=== PATIENT | female | born 1940 | race Caucasian/White ===

== ENCOUNTER → 2016-09-30 | Outpatient (CLI) | payer MEDICARE, OTHER ==
[2015-07-14 16:44] VITALS: BP 117/66
[~2016-09-30] MED LIST: ALBUTEROL0.09 MG/A4 IH; ATENOLOL100 MG PO; BONIVA PO; CALCIUM 500500 M2 PO; CALCIUM 600 MG-1 TAB PO; CALCIUM WITH D1 CTB PO; CALCIUM1 CAP PO; CLOPIDOGREL75 MG PO; COLESTID 1GM1 G PO; DEPAKOTE ER 50500 MG PO; DEPAKOTE ER250 MG PO; FISH OIL1 POW; GOOD SENSE ASPI81 M1 PO; LISINOPRIL20 MG PO; MEDI-FIRST ASP325 MG PO; MULTIVITAMIN1 CTB PO; NITROQUICK0.4 MG SL; NORCO 325 MG-51 TAB PO; OXYCODONE PO; OYSTER CALCIUM500 M1 PO; PRAVACHOL 40MG40 MG PO; SPIRIVA18 MCG IH; ZOFRAN ODT8 M1 PO; [UNRECOGNIZED DRUG - OTHER] PO
== END ==
LOC: MAMMO 10:14
DX: Z12.31 Encounter for screening mammogram for malignant neoplasm of breast (principal); R92.2 Inconclusive mammogram
CPT/HCPCS: G0202

== ENCOUNTER → 2016-09-30 | Outpatient (CLI) | payer MEDICARE, OTHER ==
[2015-07-14 16:44] VITALS: BP 117/66
== END ==
LOC: RAD 10:17
DX: Z13.820 Encounter for screening for osteoporosis (principal); M85.88 Other specified disorders of bone density and structure, other site; M85.852 Other specified disorders of bone density and structure, left thigh; M85.851 Other specified disorders of bone density and structure, right thigh

== ENCOUNTER 2016-11-02 11:34 | Emergency (ER) | payer MEDICARE, OTHER ==
[~2016-11-02] VITALS: Ht 160 cm; Wt 75.5 kg
[~2016-11-02 11:34] MED LIST changes: -BONIVA PO; -COLESTID 1GM1 G PO; -[UNRECOGNIZED DRUG - OTHER] PO
[2016-11-02] MEDS ORDERED: ATENOLOL100 MG PO (13:53)
[2016-11-02] MEDS ORDERED: COLESTID 1GM1 G PO (13:53)
[2016-11-02] MEDS ORDERED: BONIVA PO (13:55)
[2016-11-02] MEDS ORDERED: [UNRECOGNIZED DRUG - OTHER] PO (13:56)
[2016-11-02 15:15] VITALS: BP 159/83
== END 2016-11-02 15:20 | disposition home or self-care (01) ==
LOC: ED 11:34
DX: I10 Essential (primary) hypertension (principal); R20.2 Paresthesia of skin; R07.89 Other chest pain; G43.809 Other migraine, not intractable, without status migrainosus

== ENCOUNTER → 2016-11-14 | Outpatient (CLI) | payer MEDICARE, OTHER ==
[2016-11-02 15:15] VITALS: BP 159/83
[~2016-11-14] MED LIST changes: +BONIVA PO; +COLESTID 1GM1 G PO; +[UNRECOGNIZED DRUG - OTHER] PO
== END ==
LOC: CARDREHAB 07:32
DX: I25.10 Atherosclerotic heart disease of native coronary artery without angina pectoris (principal); I10 Essential (primary) hypertension; E78.5 Hyperlipidemia, unspecified; Z95.5 Presence of coronary angioplasty implant and graft; Z87.891 Personal history of nicotine dependence
CPT/HCPCS: A9500

== ENCOUNTER → 2017-06-04 | Outpatient (CLI) | payer MEDICARE, OTHER | LOC: RAD 13:42 | DX: I65.29 Occlusion and stenosis of unspecified carotid artery (principal) ==

== ENCOUNTER → 2017-09-08 | Outpatient (CLI) | payer MEDICARE, OTHER ==
[~2017-09-08] VITALS: Ht 160 cm; Wt 73.2 kg
[~2017-09-08] MED LIST changes: +CALCIUM + VIT1 EACH; -CALCIUM 600 MG-1 TAB PO; +EXCEDRIN MIGRA1 EACH PO; -FISH OIL1 POW; +FISH OIL1000 MG PO; +OPTIMUM AC500 Millio PO
[2017-09-08 15:51] VITALS: BP 139/78
== END ==
LOC: AMSURD 15:42
DX: E86.0 Dehydration (principal)
CPT/HCPCS: J7030

== ENCOUNTER → 2017-11-17 | Outpatient (CLI) | payer MEDICARE, OTHER ==
[2017-09-08 15:51] VITALS: BP 139/78
== END ==
LOC: MAMMO 10:29
DX: Z12.31 Encounter for screening mammogram for malignant neoplasm of breast (principal)

== ENCOUNTER → 2017-12-12 | Outpatient (CLI) | payer MEDICARE, OTHER ==
[2017-09-08 15:51] VITALS: BP 139/78
== END ==
LOC: MAMMO 10-20 14:30 → RAD 12:08
DX: M16.0 Bilateral primary osteoarthritis of hip (principal); M43.16 Spondylolisthesis, lumbar region; M47.9 Spondylosis, unspecified

== ENCOUNTER → 2018-02-01 | Outpatient (CLI) | payer MEDICARE, OTHER ==
[2017-09-08 15:51] VITALS: BP 139/78
== END ==
LOC: RAD 15:34
PROVIDERS: Otolaryngology
DX: M47.892 Other spondylosis, cervical region (principal); R07.0 Pain in throat
CPT/HCPCS: Q9967

== ENCOUNTER → 2018-05-26 | Outpatient (CLI) | payer MEDICARE, OTHER ==
[2017-09-08 15:51] VITALS: BP 139/78
== END ==
LOC: RAD 07:55
DX: I65.22 Occlusion and stenosis of left carotid artery (principal)

== ENCOUNTER → 2018-07-05 | Outpatient (CLI) | payer MEDICARE, OTHER ==
[2017-09-08 15:51] VITALS: BP 139/78
== END ==
LOC: RAD 11:19
DX: E04.2 Nontoxic multinodular goiter (principal)

== ENCOUNTER → 2018-12-28 | Outpatient (CLI) | payer MEDICARE, OTHER ==
[2017-09-08 15:51] VITALS: BP 139/78
== END ==
LOC: RAD 07:58 → MAMMO 08:30 → RAD 08:30 → MAMMO 13:45
DX: M81.0 Age-related osteoporosis without current pathological fracture (principal); M85.80 Other specified disorders of bone density and structure, unspecified site

== ENCOUNTER → 2018-12-28 | Outpatient (CLI) | payer MEDICARE, OTHER ==
[2017-09-08 15:51] VITALS: BP 139/78
== END ==
LOC: MAMMO 07:59
DX: Z12.31 Encounter for screening mammogram for malignant neoplasm of breast (principal)

== ENCOUNTER 2019-01-21 04:24 | Observation (INO) | payer MEDICARE, OTHER ==
[~2019-01-21] VITALS: Ht 160 cm; Wt 69.8 kg
[~2019-01-21 04:24] MED LIST changes: -CALCIUM + VIT1 EACH; +CALCIUM + VIT1 EACH PO
[2019-01-21 04:59] LABS: EOS # 0.1 (0.04-0.40); EOS % 0.6 % (1.0-5.0); HEMATOCRIT 41.9 % (37.0-47.0); HEMOGLOBIN 14.5 g/dL (12.5-16.0); LYMPH# 1.6 (1.50-4.00); MEAN CELL VOLUME 83 fl (78-100); MEAN CORPUSCULAR HEMOGLOBIN 29 pg (27-31); MEAN CORPUSCULAR HGB CONC 35 g/dL (33-37); MEAN PLATELET VOLUME 10.1 fl (7.4-10.4); MONO # 0.9 (0.20-0.80); NEU # 5.5 (1.40-6.50); PLATELET COUNT 224 K/mm3 (130-400); RED BLOOD COUNT 5.04 M/mm3 (4.10-5.30); RED CELL DISTRIBUTION WIDTH 13.4 % (11.5-14.5); WHITE BLOOD COUNT 8.2 K/mm3 (4.8-10.8)
[2019-01-21 05:06] LABS: ALBUMIN 4.6 g/dL (3.4-4.8); POTASSIUM 4.1 mmol/L (3.5-5.1); SODIUM 134 mmol/L (136-145)
[2019-01-21 05:08] LABS: CALCIUM 10.1 mg/dL (8.3-10.5)
[2019-01-21 05:09] LABS: GLUCOSE 99 mg/dL (65-105); TOTAL PROTEIN 7.5 g/dL (6.2-8.1)
[2019-01-21 05:10] LABS: CARBON DIOXIDE 24 mmol/L (23-31)
[2019-01-21 05:11] LABS: TOTAL BILIRUBIN 0.8 mg/dL (0.2-1.2)
[2019-01-21 05:14] LABS: AST-SGOT 32 U/L (5-34)
[2019-01-21 05:15] LABS: ALT/SGPT 47 U/L (0-55)
[2019-01-21 05:22] LABS: TROPONIN-I < 0.03 ng/mL (<0.030)
[2019-01-21] MEDS ORDERED: TEMOVATE30 GM TP (05:47)
[2019-01-21] MEDS ORDERED: PROAIR HFA0.09 MG/AC IH (05:50)
[2019-01-21 06:02] LABS: URINE APPEARANCE CLEAR; URINE BILIRUBIN NEGATIVE (NEGATIVE); URINE BLOOD TRACE (NEGATIVE); URINE COLOR YELLOW; URINE GLUCOSE NEGATIVE (NEGATIVE); URINE KETONE NEGATIVE (NEGATIVE); URINE NITRATE NEGATIVE (NEGATIVE); URINE PROTEIN(semi-quant) TRACE mg/dL (NEGATIVE); URINE UROBILINOGEN NORMAL (NORMAL)
[2019-01-21 06:03] LABS: URINE LEUKOCYTE ESTERASE 1+ (NEGATIVE)
[2019-01-21 07:23] VITALS: BP 186/80
[2019-01-21 11:05] VITALS: BP 185/94
[2019-01-21 14:18] VITALS: BP 149/77
[2019-01-21] MEDS ORDERED: LISINOPRIL20 MG PO (14:41)
== END 2019-01-21 15:20 | disposition home or self-care (01) ==
LOC: ED 04:24 → MED/SURG 06:54
PROVIDERS: ADMIT Nurse Practitioner Family
DX: I16.1 Hypertensive emergency (principal); I10 Essential (primary) hypertension; Z87.891 Personal history of nicotine dependence; I25.10 Atherosclerotic heart disease of native coronary artery without angina pectoris; J44.9 Chronic obstructive pulmonary disease, unspecified; Z86.73 Personal history of transient ischemic attack (TIA), and cerebral infarction without residual deficits; G93.40 Encephalopathy, unspecified; I73.00 Raynaud's syndrome without gangrene; E87.1 Hypo-osmolality and hyponatremia; Z90.49 Acquired absence of other specified parts of digestive tract; Z95.5 Presence of coronary angioplasty implant and graft; Z79.899 Other long term (current) drug therapy; Z79.82 Long term (current) use of aspirin; Z88.1 Allergy status to other antibiotic agents; Z88.6 Allergy status to analgesic agent
CPT/HCPCS: G0378; J1650

== ENCOUNTER 2019-04-01 14:31 | Emergency (ER) | payer MEDICARE, OTHER ==
[~2019-04-01 14:31] MED LIST changes: +PROAIR HFA0.09 MG/AC IH; +TEMOVATE30 GM TP
[2019-04-01 16:39] LABS: EOS # 0.2 (0.04-0.40); EOS % 2.2 % (1.0-5.0); HEMATOCRIT 41.9 % (37.0-47.0); HEMOGLOBIN 14.4 g/dL (12.5-16.0); LYMPH# 1.7 (1.50-4.00); MEAN CELL VOLUME 84 fl (78-100); MEAN CORPUSCULAR HEMOGLOBIN 29 pg (27-31); MEAN CORPUSCULAR HGB CONC 34 g/dL (33-37); MEAN PLATELET VOLUME 9.9 fl (7.4-10.4); MONO # 0.6 (0.20-0.80); NEU # 4.3 (1.40-6.50); PLATELET COUNT 240 K/mm3 (130-400); RED BLOOD COUNT 4.99 M/mm3 (4.10-5.30); RED CELL DISTRIBUTION WIDTH 13.1 % (11.5-14.5); WHITE BLOOD COUNT 6.7 K/mm3 (4.8-10.8)
[2019-04-01 16:52] LABS: ALBUMIN 4.3 g/dL (3.4-4.8); POTASSIUM 4.2 mmol/L (3.5-5.1)
[2019-04-01 16:53] LABS: CALCIUM 9.7 mg/dL (8.3-10.5)
[2019-04-01 16:54] LABS: TOTAL PROTEIN 7.7 g/dL (6.2-8.1)
[2019-04-01 16:56] LABS: TOTAL BILIRUBIN 0.5 mg/dL (0.2-1.2)
[2019-04-01 19:25] VITALS: BP 95/52
== END 2019-04-01 19:25 | disposition home or self-care (01) ==
LOC: ED 14:31
PROVIDERS: Nurse Practitioner Primary Care
DX: T78.1XXA Other adverse food reactions, not elsewhere classified, initial encounter (principal); I10 Essential (primary) hypertension; I25.10 Atherosclerotic heart disease of native coronary artery without angina pectoris; J44.9 Chronic obstructive pulmonary disease, unspecified; E78.5 Hyperlipidemia, unspecified; I73.00 Raynaud's syndrome without gangrene; Z86.73 Personal history of transient ischemic attack (TIA), and cerebral infarction without residual deficits; Z91.012 Allergy to eggs

== ENCOUNTER 2019-05-20 09:19 | Emergency (ER) | payer MEDICARE, OTHER ==
[~2019-05-20 09:19] MED LIST changes: -CALCIUM + VIT1 EACH PO; +CALCIUM 600 MG-1 TAB PO; -NITROQUICK0.4 MG SL; +NITROSTAT0.4 M1 SL
[2019-05-20 09:53] LABS: HEMATOCRIT 42.2 % (37.0-47.0); HEMOGLOBIN 14.2 g/dL (12.5-16.0); MEAN CELL VOLUME 85 fl (78-100); MEAN CORPUSCULAR HEMOGLOBIN 29 pg (27-31); MEAN CORPUSCULAR HGB CONC 34 g/dL (33-37); MEAN PLATELET VOLUME 9.8 fl (7.4-10.4); PLATELET COUNT 226 K/mm3 (130-400); RED BLOOD COUNT 4.94 M/mm3 (4.10-5.30); RED CELL DISTRIBUTION WIDTH 13.5 % (11.5-14.5); WHITE BLOOD COUNT 9.4 K/mm3 (4.8-10.8)
[2019-05-20 10:01] LABS: BAND 4 % (0-10); LYMPHOCYTE 8 % (20-51); MONOCYTE 5 % (3-10); NEUTROPHILS 81 % (42-75)
[2019-05-20 10:03] LABS: ALBUMIN 4.3 g/dL (3.4-4.8); POTASSIUM 3.7 mmol/L (3.5-5.1)
[2019-05-20 10:04] LABS: SODIUM 132 mmol/L (136-145)
[2019-05-20 10:05] LABS: CALCIUM 9.5 mg/dL (8.3-10.5)
[2019-05-20 10:06] LABS: GLUCOSE 97 mg/dL (65-105); TOTAL PROTEIN 7.1 g/dL (6.2-8.1)
[2019-05-20 10:07] LABS: CARBON DIOXIDE 21 mmol/L (23-31)
[2019-05-20 10:08] LABS: TOTAL BILIRUBIN 0.5 mg/dL (0.2-1.2)
[2019-05-20 10:11] LABS: AST-SGOT 31 U/L (5-34)
[2019-05-20 10:12] LABS: ALT/SGPT 38 U/L (0-55)
[2019-05-20 10:13] LABS: LIPASE 26 U/L (8-78)
[2019-05-20 10:19] LABS: TROPONIN-I < 0.03 ng/mL (<0.030)
[2019-05-20 10:26] LABS: D-DIMER 0.9 mg/L FEU (0.15-0.50)
[2019-05-20] MEDS ORDERED: SINGULAIR 110 MG/TAB PO (11:38)
[2019-05-20] MEDS ORDERED: FLUTICASON0.05 MG/AC NS (11:38)
[2019-05-20] MEDS ORDERED: B-121000 MCG PO (11:41)
[2019-05-20 11:54] VITALS: BP 134/68
== END 2019-05-20 12:07 | disposition home or self-care (01) ==
LOC: ED 09:19
PROVIDERS: Physician Assistant
DX: M54.9 Dorsalgia, unspecified (principal); I25.10 Atherosclerotic heart disease of native coronary artery without angina pectoris; I10 Essential (primary) hypertension; J44.9 Chronic obstructive pulmonary disease, unspecified; Z79.82 Long term (current) use of aspirin; Z79.51 Long term (current) use of inhaled steroids
CPT/HCPCS: Q9967

== ENCOUNTER 2019-06-07 06:03 | Emergency (ER) | payer MEDICARE, OTHER ==
[~2019-06-07 06:03] MED LIST changes: +B-121000 MCG PO; +FLUTICASON0.05 MG/AC NS; +SINGULAIR 110 MG/TAB PO
[2019-06-07] MEDS ORDERED: DEPAKOTE250 M1 PO (06:35)
[2019-06-07 06:49] LABS: HEMATOCRIT 39.3 % (37.0-47.0); HEMOGLOBIN 13.4 g/dL (12.5-16.0); MEAN CELL VOLUME 85 fl (78-100); MEAN CORPUSCULAR HEMOGLOBIN 29 pg (27-31); MEAN CORPUSCULAR HGB CONC 34 g/dL (33-37); MEAN PLATELET VOLUME 9.9 fl (7.4-10.4); PLATELET COUNT 188 K/mm3 (130-400); RED BLOOD COUNT 4.65 M/mm3 (4.10-5.30); WHITE BLOOD COUNT 4.1 K/mm3 (4.8-10.8)
[2019-06-07 07:09] LABS: LYMPHOCYTE 33 % (20-51); MONOCYTE 14 % (3-10); NEUTROPHILS 52 % (42-75)
[2019-06-07 07:12] LABS: ALBUMIN 3.9 g/dL (3.4-4.8); POTASSIUM 4.3 mmol/L (3.5-5.1)
[2019-06-07 07:13] LABS: CALCIUM 9.2 mg/dL (8.3-10.5)
[2019-06-07 07:15] LABS: TOTAL PROTEIN 6.5 g/dL (6.2-8.1)
[2019-06-07 07:16] LABS: TOTAL BILIRUBIN 0.8 mg/dL (0.2-1.2)
[2019-06-07 09:00] VITALS: BP 131/73
== END 2019-06-07 09:03 | disposition home or self-care (01) ==
LOC: ED 06:03
PROVIDERS: Nurse Practitioner Family
DX: G24.9 Dystonia, unspecified (principal); J44.9 Chronic obstructive pulmonary disease, unspecified; I10 Essential (primary) hypertension; I25.2 Old myocardial infarction; Z95.5 Presence of coronary angioplasty implant and graft

== ENCOUNTER 2019-07-27 18:07 | Emergency (ER) | payer MEDICARE, OTHER ==
[~2019-07-27] VITALS: Wt 71.9 kg
[~2019-07-27 18:07] MED LIST changes: +DEPAKOTE250 M1 PO; +RT SPIRIVA INH18 MCG IH; -SPIRIVA18 MCG IH; +WOMEN'S DAILY F1 TAB PO; -[UNRECOGNIZED DRUG - OTHER] PO
[2019-07-27] MEDS ORDERED: LISINOPRIL40 MG PO (18:55)
[2019-07-27] MEDS ORDERED: LORAZEPAM0.5 M1 PO (18:57)
[2019-07-27 19:02] LABS: POTASSIUM 4.3 mmol/L (3.5-5.1)
[2019-07-27 19:04] LABS: HEMATOCRIT 37.5 % (37.0-47.0); HEMOGLOBIN 12.6 g/dL (12.5-16.0); MEAN CELL VOLUME 85 fl (78-100); MEAN CORPUSCULAR HEMOGLOBIN 29 pg (27-31); MEAN CORPUSCULAR HGB CONC 34 g/dL (33-37); MEAN PLATELET VOLUME 10.3 fl (7.4-10.4); PLATELET COUNT 183 K/mm3 (130-400); RED CELL DISTRIBUTION WIDTH 13.4 % (11.5-14.5); WHITE BLOOD COUNT 5.2 K/mm3 (4.8-10.8)
[2019-07-27 19:11] LABS: LYMPHOCYTE 38 % (20-51); MONOCYTE 10 % (3-10); NEUTROPHILS 51 % (42-75)
[2019-07-27 20:30] VITALS: BP 125/60
== END 2019-07-27 20:30 | disposition home or self-care (01) ==
LOC: ED 18:07
PROVIDERS: Physician Assistant
DX: I16.0 Hypertensive urgency (principal); I25.10 Atherosclerotic heart disease of native coronary artery without angina pectoris; I10 Essential (primary) hypertension; F41.9 Anxiety disorder, unspecified; G24.9 Dystonia, unspecified; Z79.82 Long term (current) use of aspirin; Z86.73 Personal history of transient ischemic attack (TIA), and cerebral infarction without residual deficits

== ENCOUNTER → 2020-01-03 | Outpatient (CLI) | payer MEDICARE, OTHER ==
[~2020-01-03] MED LIST changes: +LISINOPRIL40 MG PO; +LORAZEPAM0.5 M1 PO
== END ==
LOC: MAMMO 12:53
DX: Z12.31 Encounter for screening mammogram for malignant neoplasm of breast (principal)

== ENCOUNTER → 2020-07-28 | Outpatient (CLI) | payer MEDICARE, OTHER ==
[2020-07-28 15:54] LABS: EOS # 0.3 (0.04-0.40); HEMATOCRIT 33.8 % (37.0-47.0); HEMOGLOBIN 10.4 g/dL (12.5-16.0); MEAN CELL VOLUME 96 fl (78-100); MEAN CORPUSCULAR HEMOGLOBIN 30 pg (27-31); MEAN CORPUSCULAR HGB CONC 31 g/dL (33-37); MONO # 0.6 (0.20-0.80); NEU # 4.6 (1.40-6.50); PLATELET COUNT 475 K/mm3 (130-400); RED BLOOD COUNT 3.53 M/mm3 (4.10-5.30); RED CELL DISTRIBUTION WIDTH 13.5 % (11.5-14.5); WHITE BLOOD COUNT 7.6 K/mm3 (4.8-10.8)
== END ==
LOC: RAD 15:13
PROVIDERS: Nurse Practitioner
DX: M25.531 Pain in right wrist (principal); R20.2 Paresthesia of skin

== ENCOUNTER 2020-09-13 07:21 | Emergency (ER) | payer MEDICARE, OTHER ==
[~2020-09-13 07:21] MED LIST changes: -PRAVACHOL 40MG40 MG PO; +PRAVASTATIN SOD40 MG PO
[2020-09-13] MEDS ORDERED: AMLODIPINE BESYL5 MG PO (08:33)
[2020-09-13] MEDS ORDERED: SERTRALINE HYDR25 MG PO (08:36)
[2020-09-13 08:54] LABS: HEMATOCRIT 39.7 % (37.0-47.0); HEMOGLOBIN 13.3 g/dL (12.5-16.0); MEAN CELL VOLUME 86 fl (78-100); MEAN CORPUSCULAR HEMOGLOBIN 29 pg (27-31); MEAN CORPUSCULAR HGB CONC 34 g/dL (33-37); MEAN PLATELET VOLUME 9.9 fl (7.4-10.4); PLATELET COUNT 234 K/mm3 (130-400); RED BLOOD COUNT 4.61 M/mm3 (4.10-5.30); RED CELL DISTRIBUTION WIDTH 13.6 % (11.5-14.5); WHITE BLOOD COUNT 13.6 K/mm3 (4.8-10.8)
[2020-09-13 09:05] LABS: ALBUMIN 4.3 g/dL (3.4-4.8)
[2020-09-13 09:06] LABS: POTASSIUM 4.5 mmol/L (3.5-5.1)
[2020-09-13 09:07] LABS: CALCIUM 9.9 mg/dL (8.3-10.5)
[2020-09-13 09:08] LABS: TOTAL PROTEIN 7.4 g/dL (6.2-8.1)
[2020-09-13 09:10] LABS: TOTAL BILIRUBIN 0.6 mg/dL (0.2-1.2)
[2020-09-13 09:15] LABS: BAND 3 % (0-10); LYMPHOCYTE 9 % (20-51); MONOCYTE 3 % (3-10); NEUTROPHILS 85 % (42-75)
[2020-09-13 09:38] LABS: D-DIMER 2.01 mg/L FEU (0.15-0.50)
[2020-09-13 09:52] LABS: URINE APPEARANCE CLEAR; URINE BILIRUBIN NEGATIVE (NEGATIVE); URINE BLOOD TRACE (NEGATIVE); URINE COLOR YELLOW; URINE GLUCOSE NEGATIVE (NEGATIVE); URINE KETONE SMALL (NEGATIVE); URINE LEUKOCYTE ESTERASE 1+ (NEGATIVE); URINE MUCUS PRESENT (NOT PRESENT); URINE NITRATE NEGATIVE (NEGATIVE); URINE PROTEIN(semi-quant) 1+ mg/dL (NEGATIVE); URINE UROBILINOGEN NORMAL (NORMAL)
[2020-09-13] MEDS ORDERED: MACROBID 100 M100 MG PO (11:03)
[2020-09-13] MEDS ORDERED: NAPROXEN250 M2 PO (11:03)
[2020-09-13 11:45] VITALS: BP 142/86
== END 2020-09-13 11:45 | disposition home or self-care (01) ==
LOC: ED 07:21
PROVIDERS: Physician Assistant
DX: M25.562 Pain in left knee (principal); N39.0 Urinary tract infection, site not specified; I10 Essential (primary) hypertension; E78.5 Hyperlipidemia, unspecified; M79.662 Pain in left lower leg; Z79.82 Long term (current) use of aspirin; Z87.891 Personal history of nicotine dependence; Z88.6 Allergy status to analgesic agent; Z88.1 Allergy status to other antibiotic agents
CPT/HCPCS: J1885

== ENCOUNTER → 2020-11-23 | Outpatient (CLI) | payer MEDICARE, OTHER ==
[~2020-11-23] MED LIST changes: +ADVIL 200MG TA200 MG PO; +ALLERGY RELIEF10 M2 PO; +AMLODIPINE BESYL5 MG PO; +AMOXICILLIN AND1 TA2 PO; +CYCLOBENZ5 MG PO; +HYDROXYZINE HCL25 M1 PO; +MACROBID 100 M100 MG PO; +NAPROXEN250 M2 PO; +SERTRALINE HYDR25 MG PO
== END ==
LOC: RAD 09:47
DX: K62.5 Hemorrhage of anus and rectum (principal); Z90.49 Acquired absence of other specified parts of digestive tract
CPT/HCPCS: Q9967

== ENCOUNTER → 2021-01-08 | Outpatient (CLI) | payer MEDICARE, OTHER | LOC: MAMMO 01-01 14:30 | DX: Z12.31 Encounter for screening mammogram for malignant neoplasm of breast (principal); Z78.0 Asymptomatic menopausal state ==

== ENCOUNTER → 2021-01-08 | Outpatient (CLI) | payer MEDICARE, OTHER | LOC: MAMMO 14:19 | DX: M81.0 Age-related osteoporosis without current pathological fracture (principal) ==

== ENCOUNTER 2021-01-20 10:44 | Emergency (ER) | payer MEDICARE, OTHER ==
[~2021-01-20 10:44] MED LIST changes: -ADVIL 200MG TA200 MG PO; -ALLERGY RELIEF10 M2 PO; -AMOXICILLIN AND1 TA2 PO; -CYCLOBENZ5 MG PO; -HYDROXYZINE HCL25 M1 PO
[2021-01-20] MEDS ORDERED: ADVIL 200MG TA200 MG PO (11:31)
[2021-01-20 12:22] VITALS: BP 138/71
== END 2021-01-20 12:22 | disposition home or self-care (01) ==
LOC: ED 10:44
DX: S61.211A Laceration without foreign body of left index finger without damage to nail, initial encounter (principal); I10 Essential (primary) hypertension; E78.5 Hyperlipidemia, unspecified; J45.909 Unspecified asthma, uncomplicated; Z23 Encounter for immunization; Z79.899 Other long term (current) drug therapy; W26.0XXA Contact with knife, initial encounter
CPT/HCPCS: 90715

== ENCOUNTER → 2021-02-07 | Day surgery (SDC) | payer MEDICARE, OTHER ==
[~2021-02-07] MED LIST changes: +ADVIL 200MG TA200 MG PO; +ALLERGY RELIEF10 M2 PO; +AMOXICILLIN AND1 TA2 PO; +CYCLOBENZ5 MG PO; +HYDROXYZINE HCL25 M1 PO
== END | disposition home or self-care (01) ==
LOC: MSO 07:45
DX: D12.8 Benign neoplasm of rectum (principal); K64.0 First degree hemorrhoids; I25.10 Atherosclerotic heart disease of native coronary artery without angina pectoris; I10 Essential (primary) hypertension; E78.5 Hyperlipidemia, unspecified; J44.9 Chronic obstructive pulmonary disease, unspecified; J30.2 Other seasonal allergic rhinitis; I73.9 Peripheral vascular disease, unspecified; M81.0 Age-related osteoporosis without current pathological fracture; I73.00 Raynaud's syndrome without gangrene; R56.9 Unspecified convulsions; M26.69 Other specified disorders of temporomandibular joint; M43.10 Spondylolisthesis, site unspecified; F41.9 Anxiety disorder, unspecified; Z79.83 Long term (current) use of bisphosphonates; Z79.1 Long term (current) use of non-steroidal anti-inflammatories (NSAID); Z87.891 Personal history of nicotine dependence; Z79.82 Long term (current) use of aspirin; Z95.5 Presence of coronary angioplasty implant and graft; Z90.49 Acquired absence of other specified parts of digestive tract; Z79.899 Other long term (current) drug therapy
CPT/HCPCS: 00811; J2704; J7120

== ENCOUNTER 2021-03-30 13:22 | Emergency (ER) | payer MEDICARE, OTHER ==
[~2021-03-30] VITALS: Ht 167.6 cm; Wt 72.2 kg
[~2021-03-30 13:22] MED LIST changes: -ALLERGY RELIEF10 M2 PO; -AMOXICILLIN AND1 TA2 PO; -CYCLOBENZ5 MG PO; -HYDROXYZINE HCL25 M1 PO
[2021-03-30] MEDS ORDERED: CYCLOBENZ5 MG PO (13:49)
[2021-03-30] MEDS ORDERED: AMOXICILLIN AND1 TA2 PO (13:49)
[2021-03-30] MEDS ORDERED: ALLERGY RELIEF10 M2 PO (13:50)
[2021-03-30] MEDS ORDERED: HYDROXYZINE HCL25 M1 PO (13:53)
[2021-03-30 15:09] LABS: URINE APPEARANCE CLEAR; URINE BILIRUBIN NEGATIVE (NEGATIVE); URINE BLOOD TRACE (NEGATIVE); URINE COLOR YELLOW; URINE GLUCOSE NEGATIVE (NEGATIVE); URINE KETONE NEGATIVE (NEGATIVE); URINE LEUKOCYTE ESTERASE 1+ (NEGATIVE); URINE NITRATE NEGATIVE (NEGATIVE); URINE PROTEIN(semi-quant) NEGATIVE (NEGATIVE); URINE UROBILINOGEN NORMAL (NORMAL)
[2021-03-30 15:25] VITALS: BP 145/76
== END 2021-03-30 15:25 | disposition home or self-care (01) ==
LOC: ED 13:22
PROVIDERS: Physician Assistant
DX: M54.50 Low back pain, unspecified (principal); G89.29 Other chronic pain; I25.10 Atherosclerotic heart disease of native coronary artery without angina pectoris; I25.2 Old myocardial infarction; I10 Essential (primary) hypertension; J44.9 Chronic obstructive pulmonary disease, unspecified; Z88.6 Allergy status to analgesic agent; Z79.899 Other long term (current) drug therapy; Z79.82 Long term (current) use of aspirin
CPT/HCPCS: J1885

== ENCOUNTER → 2021-06-05 | Outpatient (CLI) | payer MEDICARE, OTHER ==
[~2021-06-05] MED LIST changes: +ALLERGY RELIEF10 M2 PO; +AMOXICILLIN AND1 TA2 PO; +CYCLOBENZ5 MG PO; +HYDROXYZINE HCL25 M1 PO
[2021-06-05 11:51] LABS: BASO # 0.05 K/mm3 (0.02-0.10); EOS % 4.2 % (1.0-5.0); HEMATOCRIT 36.9 % (37.0-47.0); HEMOGLOBIN 12.4 g/dL (12.5-16.0); LYMPH# 1.78 K/mm3 (1.50-4.00); MEAN CELL VOLUME 84 fl (78-100); MEAN CORPUSCULAR HEMOGLOBIN 28 pg (27-31); MEAN CORPUSCULAR HGB CONC 34 g/dL (33-37); MEAN PLATELET VOLUME 9.5 fl (7.4-10.4); MONO # 0.79 K/mm3 (0.20-0.80); NEU # 4.29 K/mm3 (1.40-6.50); PLATELET COUNT 219 K/mm3 (130-400); RED BLOOD COUNT 4.37 M/mm3 (4.10-5.30); RED CELL DISTRIBUTION WIDTH 13.2 % (11.5-14.5); WHITE BLOOD COUNT 7.2 K/mm3 (4.8-10.8)
[2021-06-05 12:00] LABS: ALBUMIN 3.9 g/dL (3.4-4.8); POTASSIUM 4.3 mmol/L (3.5-5.1)
[2021-06-05 12:02] LABS: CALCIUM 9.7 mg/dL (8.3-10.5)
[2021-06-05 12:03] LABS: TOTAL PROTEIN 6.7 g/dL (6.2-8.1)
[2021-06-05 12:05] LABS: TOTAL BILIRUBIN 0.5 mg/dL (0.2-1.2)
[2021-06-05 12:59] LABS: ERYTHROCYTE SEDIMENTATION RATE 27 mm/hr (0-30)
== END ==
LOC: LAB 11:25
PROVIDERS: Family Medicine
DX: M54.9 Dorsalgia, unspecified (principal)

== ENCOUNTER → 2021-07-30 | Outpatient (CLI) | payer MEDICARE, OTHER | LOC: RAD 07-25 10:00 | DX: K76.89 Other specified diseases of liver (principal); Z90.49 Acquired absence of other specified parts of digestive tract ==

== ENCOUNTER → 2021-09-03 | Outpatient (CLI) | payer MEDICARE, OTHER | LOC: RAD 08:02 | DX: R94.5 Abnormal results of liver function studies (principal) ==

== ENCOUNTER 2022-01-14 16:32 | Emergency (ER) | payer MEDICARE, OTHER ==
[~2022-01-14] VITALS: Ht 157.5 cm; Wt 74.5 kg
[2022-01-14 17:15] LABS: BASO # 0.02 K/mm3 (0.02-0.10); EOS # 0.07 K/mm3 (0.04-0.40); EOS % 0.8 % (1.0-5.0); HEMATOCRIT 34.7 % (37.0-47.0); HEMOGLOBIN 12.3 g/dL (12.5-16.0); LYMPH# 1.03 K/mm3 (1.50-4.00); MEAN CELL VOLUME 82 fl (78-100); MEAN CORPUSCULAR HEMOGLOBIN 29 pg (27-31); MEAN CORPUSCULAR HGB CONC 35 g/dL (33-37); MEAN PLATELET VOLUME 9.6 fl (7.4-10.4); MONO # 0.95 K/mm3 (0.20-0.80); NEU # 6.54 K/mm3 (1.40-6.50); PLATELET COUNT 223 K/mm3 (130-400); RED BLOOD COUNT 4.23 M/mm3 (4.10-5.30); RED CELL DISTRIBUTION WIDTH 12.5 % (11.5-14.5); WHITE BLOOD COUNT 8.6 K/mm3 (4.8-10.8)
[2022-01-14 17:28] LABS: ALBUMIN 3.9 g/dL (3.4-4.8)
[2022-01-14 17:29] LABS: POTASSIUM 3.1 mmol/L (3.5-5.1)
[2022-01-14 17:30] LABS: CALCIUM 8.9 mg/dL (8.3-10.5)
[2022-01-14 17:31] LABS: TOTAL PROTEIN 6.7 g/dL (6.2-8.1)
[2022-01-14 17:33] LABS: TOTAL BILIRUBIN 0.4 mg/dL (0.2-1.2)
[2022-01-14] MEDS ORDERED: ONDANSETRON ODT8 MG PO (17:33)
[2022-01-14] MEDS ORDERED: CYCLOBENZAPRINE10 M1 PO (17:34)
[2022-01-14 18:47] LABS: URINE WBC 0 /hpf (0-3)
[2022-01-14 18:58] VITALS: BP 141/74
[2022-01-14 19:00] LABS: URINE APPEARANCE CLEAR; URINE BILIRUBIN NEGATIVE (NEGATIVE); URINE BLOOD NEGATIVE (NEGATIVE); URINE COLOR YELLOW; URINE GLUCOSE NEGATIVE (NEGATIVE); URINE KETONE NEGATIVE (NEGATIVE); URINE LEUKOCYTE ESTERASE NEGATIVE (NEGATIVE); URINE NITRATE NEGATIVE (NEGATIVE); URINE PROTEIN(semi-quant) NEGATIVE (NEGATIVE); URINE UROBILINOGEN NORMAL (NORMAL)
== END 2022-01-14 18:58 | disposition other institution (70) ==
LOC: ED 16:32
PROVIDERS: Physician Assistant
DX: U07.1 COVID-19 (principal); E87.1 Hypo-osmolality and hyponatremia; E87.6 Hypokalemia
CPT/HCPCS: J2405; J7030

== ENCOUNTER 2022-01-14 18:58 | Inpatient (IN) | payer MEDICARE, OTHER ==
[~2022-01-14] VITALS: Ht 160 cm; Wt 72.7 kg
[~2022-01-14 18:58] MED LIST changes: +CYCLOBENZAPRINE10 M1 PO; +ONDANSETRON ODT8 MG PO
[2022-01-14 20:19] VITALS: BP 141/74
[2022-01-15 02:00] VITALS: BP 126/67
[2022-01-15 05:51] VITALS: BP 115/66; BP 123/74
[2022-01-15 07:55] LABS: BASO # 0.01 K/mm3 (0.02-0.10); EOS # 0.04 K/mm3 (0.04-0.40); EOS % 0.9 % (1.0-5.0); HEMATOCRIT 34.6 % (37.0-47.0); HEMOGLOBIN 11.9 g/dL (12.5-16.0); LYMPH# 1.05 K/mm3 (1.50-4.00); MEAN CELL VOLUME 85 fl (78-100); MEAN CORPUSCULAR HEMOGLOBIN 29 pg (27-31); MEAN CORPUSCULAR HGB CONC 34 g/dL (33-37); MEAN PLATELET VOLUME 9.8 fl (7.4-10.4); MONO # 0.69 K/mm3 (0.20-0.80); NEU # 2.68 K/mm3 (1.40-6.50); PLATELET COUNT 211 K/mm3 (130-400); RED BLOOD COUNT 4.09 M/mm3 (4.10-5.30); RED CELL DISTRIBUTION WIDTH 12.9 % (11.5-14.5); WHITE BLOOD COUNT 4.5 K/mm3 (4.8-10.8)
[2022-01-15 08:02] LABS: CALCIUM 8.5 mg/dL (8.3-10.5)
[2022-01-15 09:28] VITALS: BP 138/81
== END 2022-01-15 11:04 | disposition home or self-care (01) | DRG 641 ==
LOC: MED/SURG 18:58
PROVIDERS: ADMIT Physician Assistant
DX: E87.1 Hypo-osmolality and hyponatremia (principal); E87.6 Hypokalemia; J44.9 Chronic obstructive pulmonary disease, unspecified; I25.10 Atherosclerotic heart disease of native coronary artery without angina pectoris; I25.2 Old myocardial infarction; E86.0 Dehydration; Z79.82 Long term (current) use of aspirin; Z86.16 Personal history of COVID-19; Z88.5 Allergy status to narcotic agent; Z88.8 Allergy status to other drugs, medicaments and biological substances
CPT/HCPCS: J1650; J3480

== ENCOUNTER → 2022-02-11 | Outpatient (CLI) | payer MEDICARE, OTHER | LOC: RAD 08:57 | DX: R59.1 Generalized enlarged lymph nodes (principal) ==

== ENCOUNTER → 2022-02-28 | Outpatient (CLI) | payer MEDICARE, OTHER | LOC: MAMMO 10:15 | DX: Z12.31 Encounter for screening mammogram for malignant neoplasm of breast (principal) ==

== ENCOUNTER → 2022-04-22 | Outpatient (CLI) | payer MEDICARE, OTHER | LOC: RAD 12:53 | DX: R22.1 Localized swelling, mass and lump, neck (principal) ==

== ENCOUNTER 2022-09-22 07:51 | Emergency (ER) | payer MEDICARE, OTHER ==
[~2022-09-22] VITALS: Wt 76.7 kg
[2022-09-22 08:58] LABS: BASO # 0.04 K/mm3 (0.02-0.10); EOS # 0.23 K/mm3 (0.04-0.40); EOS % 1.5 % (1.0-5.0); HEMATOCRIT 38.6 % (37.0-47.0); HEMOGLOBIN 12.6 g/dL (12.5-16.0); LYMPH# 1.34 K/mm3 (1.50-4.00); MEAN CELL VOLUME 88 fl (78-100); MEAN CORPUSCULAR HEMOGLOBIN 29 pg (27-31); MEAN CORPUSCULAR HGB CONC 33 g/dL (33-37); MEAN PLATELET VOLUME 10.1 fl (7.4-10.4); MONO # 0.87 K/mm3 (0.20-0.80); NEU # 12.56 K/mm3 (1.40-6.50); PLATELET COUNT 162 K/mm3 (130-400); RED BLOOD COUNT 4.39 M/mm3 (4.10-5.30); RED CELL DISTRIBUTION WIDTH 13.7 % (11.5-14.5); WHITE BLOOD COUNT 15.1 K/mm3 (4.8-10.8)
[2022-09-22 09:09] LABS: ALBUMIN 3.8 g/dL (3.4-4.8); SODIUM 136 mmol/L (136-145)
[2022-09-22 09:10] LABS: CALCIUM 8.8 mg/dL (8.3-10.5)
[2022-09-22 09:11] LABS: GLUCOSE 72 mg/dL (65-105); TOTAL PROTEIN 6.2 g/dL (6.2-8.1)
[2022-09-22 09:12] LABS: CARBON DIOXIDE 20 mmol/L (23-31)
[2022-09-22 09:13] LABS: TOTAL BILIRUBIN 0.6 mg/dL (0.2-1.2)
[2022-09-22 09:17] LABS: AST-SGOT 27 U/L (5-34)
[2022-09-22 09:18] LABS: ALT/SGPT 47 U/L (0-55); LIPASE 39 U/L (8-78)
[2022-09-22 09:20] LABS: PARTIAL THROMBOPLASTIN TIME 19.4 SECONDS (21.0-32.0); PROTHROMBIN TIME 9.4 SECONDS (9.0-12.0)
[2022-09-22 09:23] LABS: D-DIMER 0.76 mg/L FEU (0.15-0.50)
[2022-09-22 09:28] LABS: TROPONIN-I < 0.030 ng/mL (<0.030)
[2022-09-22 10:37] LABS: PH-URINE 6.5 (5.0 - 8.0); URINE APPEARANCE CLEAR; URINE BILIRUBIN NEGATIVE (NEGATIVE); URINE BLOOD NEGATIVE (NEGATIVE); URINE COLOR YELLOW; URINE GLUCOSE NEGATIVE (NEGATIVE); URINE KETONE NEGATIVE (NEGATIVE); URINE LEUKOCYTE ESTERASE NEGATIVE (NEGATIVE); URINE NITRATE NEGATIVE (NEGATIVE); URINE PROTEIN(semi-quant) TRACE (NEGATIVE); URINE UROBILINOGEN NORMAL (NORMAL); URINE WBC 0-1 /hpf (0-3)
[2022-09-22 12:36] VITALS: BP 104/94
== END 2022-09-22 12:22 | disposition home or self-care (01) ==
LOC: ED 07:51
PROVIDERS: Nurse Practitioner
DX: R53.81 Other malaise (principal); R53.83 Other fatigue; Z28.310 Unvaccinated for COVID-19; Z79.899 Other long term (current) drug therapy; Z20.822 Contact with and (suspected) exposure to COVID-19
CPT/HCPCS: J7030; Q9967

== ENCOUNTER 2023-12-28 03:09 | Emergency (ER) | payer MEDICARE, OTHER ==
[~2023-12-28] VITALS: Ht 157.5 cm; Wt 76.3 kg
[~2023-12-28 03:09] MED LIST changes: +BENADRYL ALLERG25 M1 PO; +DEXAMETHASONE/NE5 M1 OT; +GOOD NEIGHBOR200 M3 PO; +SYSTANE 0.3-0.415 ML OP
[2023-12-28 04:04] LABS: BASO # 0.04 K/mm3 (0.02-0.10); EOS # 0.16 K/mm3 (0.04-0.40); EOS % 1.9 % (1.0-5.0); HEMATOCRIT 34.2 % (37.0-47.0); HEMOGLOBIN 11.7 g/dL (12.5-16.0); LYMPH# 1.43 K/mm3 (1.50-4.00); MEAN CELL VOLUME 83 fl (78-100); MEAN CORPUSCULAR HEMOGLOBIN 29 pg (27-31); MEAN CORPUSCULAR HGB CONC 34 g/dL (33-37); MEAN PLATELET VOLUME 9.9 fl (7.4-10.4); MONO # 0.96 K/mm3 (0.20-0.80); NEU # 5.85 K/mm3 (1.40-6.50); PLATELET COUNT 234 K/mm3 (130-400); RED BLOOD COUNT 4.11 M/mm3 (4.10-5.30); RED CELL DISTRIBUTION WIDTH 13.4 % (11.5-14.5); WHITE BLOOD COUNT 8.5 K/mm3 (4.8-10.8)
[2023-12-28 04:08] LABS: CALCIUM 9.2 mg/dL (8.3-10.5)
[2023-12-28 04:09] LABS: TOTAL PROTEIN 6.7 g/dL (6.2-8.1)
[2023-12-28 04:11] LABS: TOTAL BILIRUBIN 0.8 mg/dL (0.2-1.2)
[2023-12-28] MEDS ORDERED: Sodium Chloride 3% 500 ML IV SCH (04:45)
[2023-12-28 05:23] LABS: URINE APPEARANCE CLEAR (CLEAR); URINE COLOR YELLOW (YELLOW)
[2023-12-28 05:24] LABS: URINE BILIRUBIN NEGATIVE (NEGATIVE); URINE BLOOD TRACE-INTACT (NEGATIVE); URINE GLUCOSE NEGATIVE (NEGATIVE); URINE KETONE NEGATIVE (NEGATIVE); URINE LEUKOCYTE ESTERASE NEGATIVE (NEGATIVE); URINE NITRATE NEGATIVE (NEGATIVE); URINE PROTEIN(semi-quant) TRACE (NEGATIVE); URINE WBC 0-1 /hpf (0-3)
[2023-12-28] MEDS ORDERED: AYR SALINE GEL1 NS (05:37)
[2023-12-28] MEDS ORDERED: Iohexol 350 - 100 ML VIAL IV ONE (05:47)
[2023-12-28 08:51] VITALS: BP 127/64
== END 2023-12-28 09:39 | disposition home or self-care (01) ==
LOC: ED 03:09
PROVIDERS: Physician Assistant
DX: E87.1 Hypo-osmolality and hyponatremia (principal); M25.551 Pain in right hip; R41.82 Altered mental status, unspecified
CPT/HCPCS: J7131; Q9967

== ENCOUNTER → 2024-01-06 | Outpatient (CLI) | payer MEDICARE, OTHER ==
[~2024-01-06] MED LIST changes: +AYR SALINE GEL1 NS
== END ==
LOC: RAD 09:45
DX: M16.11 Unilateral primary osteoarthritis, right hip (principal)

== ENCOUNTER → 2024-03-21 | Outpatient (CLI) | payer MEDICARE, OTHER | LOC: MAMMO 09:57 | DX: Z12.31 Encounter for screening mammogram for malignant neoplasm of breast (principal) ==

== ENCOUNTER 2024-05-27 09:52 | Emergency (ER) | payer MEDICARE, OTHER ==
[~2024-05-27] VITALS: Ht 157.5 cm; Wt 75.9 kg
[2024-05-27] MEDS ORDERED: PROBIOTIC1 EAC1 PO (10:11)
[2024-05-27] MEDS ORDERED: [UNRECOGNIZED DRUG - OTHER] OU (10:12)
[2024-05-27 10:32] LABS: BASO # 0.03 K/mm3 (0.02-0.10); EOS % 3.7 % (1.0-5.0); HEMATOCRIT 38.6 % (37.0-47.0); HEMOGLOBIN 12.9 g/dL (12.5-16.0); LYMPH# 1.43 K/mm3 (1.50-4.00); MEAN CELL VOLUME 86 fl (78-100); MEAN CORPUSCULAR HEMOGLOBIN 29 pg (27-31); MEAN CORPUSCULAR HGB CONC 33 g/dL (33-37); MEAN PLATELET VOLUME 9.6 fl (7.4-10.4); MONO # 0.83 K/mm3 (0.20-0.80); NEU # 2.97 K/mm3 (1.40-6.50); PLATELET COUNT 194 K/mm3 (130-400); RED BLOOD COUNT 4.48 M/mm3 (4.10-5.30); RED CELL DISTRIBUTION WIDTH 12.9 % (11.5-14.5); WHITE BLOOD COUNT 5.5 K/mm3 (4.8-10.8)
[2024-05-27 10:40] LABS: SODIUM 137 mmol/L (136-145)
[2024-05-27 10:41] LABS: CALCIUM 9.7 mg/dL (8.3-10.5)
[2024-05-27 10:42] LABS: GLUCOSE 84 mg/dL (65-105); TOTAL PROTEIN 6.6 g/dL (6.2-8.1)
[2024-05-27 10:43] LABS: CARBON DIOXIDE 22 mmol/L (23-31)
[2024-05-27 10:44] LABS: TOTAL BILIRUBIN 0.6 mg/dL (0.2-1.2)
[2024-05-27 10:47] LABS: AST-SGOT 30 U/L (5-34)
[2024-05-27 10:48] LABS: ALT/SGPT 40 U/L (0-55)
[2024-05-27 10:56] LABS: TROPONIN-I < 0.030 ng/mL (0.00-0.033)
[2024-05-27 12:35] VITALS: BP 132/73
== END 2024-05-27 12:37 | disposition home or self-care (01) ==
LOC: ED 09:52
PROVIDERS: Family Medicine
DX: G45.9 Transient cerebral ischemic attack, unspecified (principal); G50.0 Trigeminal neuralgia; Z98.61 Coronary angioplasty status; Z79.82 Long term (current) use of aspirin

== ENCOUNTER 2024-10-02 16:23 | Emergency (ER) | payer MEDICARE, OTHER ==
[~2024-10-02] VITALS: Ht 157.5 cm; Wt 73.7 kg
[~2024-10-02 16:23] MED LIST changes: +PROBIOTIC1 EAC1 PO; +[UNRECOGNIZED DRUG - OTHER] OU
[2024-10-02] MEDS ORDERED: PROBIOTIC PO (16:49)
[2024-10-02] MEDS ORDERED: SPIRIVA RE2.5 MCG/Ac IH (16:51)
[2024-10-02] MEDS ORDERED: ESTRADIOL CREAM VG (16:54)
[2024-10-02] MEDS ORDERED: Ketorolac 30 MG/ML VIAL IM ONE (17:00)
[2024-10-02 17:53] VITALS: BP 158/68
== END 2024-10-02 17:55 | disposition home or self-care (01) ==
LOC: ED 16:23
DX: M25.561 Pain in right knee (principal); Z95.5 Presence of coronary angioplasty implant and graft; Z88.6 Allergy status to analgesic agent; Z79.82 Long term (current) use of aspirin
CPT/HCPCS: J1885

== ENCOUNTER → 2024-10-03 | Outpatient (CLI) | payer MEDICARE, OTHER ==
[~2024-10-03] MED LIST changes: +ESTRADIOL CREAM VG; +PROBIOTIC PO; +SPIRIVA RE2.5 MCG/Ac IH
== END ==
LOC: RAD 10:40
DX: M25.561 Pain in right knee (principal)